=== PATIENT | female | born 1985 ===

== ENCOUNTER 2021-03-20 11:51 | Outpatient (CLI) | payer OTHER ==
[2021-03-20 20:56] LABS: SARS-CoV-2 PCR by NAA Not Detected (NotDetected)
== END 2021-03-20 11:52 | disposition home or self-care (01) ==
LOC: CSHLAB 11:51
PROVIDERS: ATTEND Family Medicine
DX: Z01.812 Encounter for preprocedural laboratory examination (principal); Z20.822 Contact with and (suspected) exposure to COVID-19
CPT/HCPCS: 87635; U0003; U0005

== ENCOUNTER 2021-03-24 18:09 | Inpatient (IN) | payer OTHER ==
[~2021-03-24 18:09] MED LIST: Bupivacaine 0.25% HCL 30 ML VIAL ONE
[2021-03-24] MEDS ORDERED: Carboprost 250 MCG/ML AMP IM PRN (19:39)
[2021-03-24] MEDS ORDERED: hydrALAZINE 20 MG/ML VIAL SLOW IVP PRN (19:39)
[2021-03-24] MEDS ORDERED: Butorphanol Tartrate 1 MG/ML VIAL SLOW IVP PRN (19:39)
[2021-03-24] MEDS ORDERED: Misoprostol 200 MCG TAB PR PRN (19:39)
[2021-03-24] MEDS ORDERED: Ondansetron PF 4 MG/2 ML Vial IVP PRN (19:39)
[2021-03-24] MEDS ORDERED: Lidocaine 1% (PF) 30 ML VIAL SC PRN (19:39)
[2021-03-24] MEDS ORDERED: Promethazine HCl 25 MG/ML VIAL IM PRN (19:39)
[2021-03-24] MEDS ORDERED: Acetaminophen 500 MG TAB PO PRN (19:39)
[2021-03-24] MEDS ORDERED: Methylergonovine 0.2 MG/ML VIAL IM PRN (19:39)
[2021-03-24] MEDS ORDERED: Ibuprofen 800 MG TAB PO PRN (19:39)
[2021-03-24] MEDS ORDERED: NS w/ Oxytocin 30 units 500 ML IV SCH (19:45)
[2021-03-24] MEDS ORDERED: NS w/ Oxytocin 30 units 500 ML IVPB SCH (19:45)
[2021-03-24 20:19] VITALS: BMI 35.2
[2021-03-24 20:23] LABS: Hemoglobin 12.3 g/dL (12.0-15.5); Mean Corpuscular HGB CONC 33.4 g/dL (32.0-36.0); Mean Corpuscular Hemoglobin 28.4 pg (27.0-33.0); Mean Platelet Volume 9.8 fl (7.4-10.4); Platelet Count 214 10x3/uL (150-450); RBC Distribution Width 12.8 % (11.5-14.5); Red Blood Cell (RBC) Count 4.33 10x6/uL (3.90-5.03); White Blood Cell (WBC) Count 11.5 10x3/uL (3.5-10.5)
[2021-03-24] MEDS ORDERED: Misoprostol 100 MCG TAB ONE (20:25)
[2021-03-24] MEDS: Misoprostol 100 MCG TAB VAG SCH (20:28)
[2021-03-24 20:53] LABS: Hep B Surf Ag Non-Reactive S/CO (NonReactive)
[2021-03-24 20:55] LABS: Syphilis Antibody Nonreactive (Nonreactive); Syphilis Antibody Index 0.05 S/CO (<1.00 Non-Reactive)
[2021-03-24 21:54] LABS: HBSAg Index 0.14 S/CO (0-0.99)
[2021-03-25] MEDS ORDERED: Fentanyl 4 mcg/Bup 0.1% Cadd 100 ML ONE ×2 (00:53→08:54)
[2021-03-25] MEDS: Fentanyl 4 mcg/Bupivacaine 0.1% Cassette 100 ML EPIDURAL SCH ×2 (01:52→08:57)
[2021-03-25] MEDS ORDERED: diphenhydrAMINE 50 MG/ML VIAL IVP PRN (01:59)
[2021-03-25] MEDS ORDERED: ePHEDrine 50 MG/ML VIAL SLOW IVP PRN (01:59)
[2021-03-25] MEDS ORDERED: Ondansetron PF 4 MG/2 ML Vial IVP PRN (01:59)
[2021-03-25] MEDS ORDERED: Acetaminophen 325 MG TAB PO PRN (01:59)
[2021-03-25] MEDS ORDERED: Lactated Ringer's 500 ML IV PRN (01:59)
[2021-03-25] MEDS ORDERED: Eucerin (Mineral Oil/Petrolatum,White) 30 gm Jar TOP PRN (01:59)
[2021-03-25] MEDS ORDERED: Promethazine HCl 25 MG/ML VIAL IM PRN (01:59)
[2021-03-25] MEDS ORDERED: Naloxone HCl 0.4 mg/ml Vial IVP PRN ×2 (01:59)
[2021-03-25] MEDS ORDERED: Communication Order-Pharmacy FS SCH (02:00)
[2021-03-25] MEDS: Misoprostol 100 MCG TAB VAG SCH ×2 (12:10→12:11)
[2021-03-25] MEDS: Lactated Ringer's 1,000 ML IV SCH (12:10)
[2021-03-25] MEDS ORDERED: Milk Of Magnesia 30 ML UDCUP PO PRN (13:22)
[2021-03-25] MEDS ORDERED: Adacel (T-DAP) 0.5 ML SYRINGE IM ONE (13:22)
[2021-03-25] MEDS ORDERED: Lanolin Ointment 7 GM TUBE TOP PRN (13:22)
[2021-03-25] MEDS ORDERED: Preparation H Ointment 28 GM TUBE PR PRN (13:22)
[2021-03-25] MEDS ORDERED: Bisacodyl 10 MG SUPP PR PRN (13:22)
[2021-03-25] MEDS ORDERED: Benzocaine-Menthol 82.5 ML CAN TOP PRN (13:22)
[2021-03-25] MEDS ORDERED: hydrALAZINE 20 MG/ML VIAL SLOW IVP PRN (13:22)
[2021-03-25] MEDS: Ibuprofen 800 MG TAB PO SCH ×2 (14:41→21:46)
[2021-03-25] MEDS ORDERED: Ferrous Sulfate 325 MG TAB PO SCH (17:00)
[2021-03-25] MEDS: Docusate Calcium (SURFAK) 240 MG CAP PO SCH (21:45)
[2021-03-26] MEDS ORDERED: Acetaminophen 500 MG TAB PO PRN (06:30)
[2021-03-26] MEDS: Ibuprofen 800 MG TAB PO SCH (06:42)
[2021-03-26 08:15] VITALS: BP 122/77; TEMP 97.9
[2021-03-26] MEDS ORDERED: Polyethylene Glycol 3350 17 GM Packet PO SCH (09:00)
[2021-03-26] MEDS ORDERED: Prenatal Vitamin 1 TAB PO SCH (09:00)
[2021-03-26] MEDS: Docusate Calcium (SURFAK) 240 MG CAP PO SCH (09:04)
== END 2021-03-26 13:45 | disposition home or self-care (01) | DRG 806 ==
LOC: CSHLD 18:09 → CSHPP 03-25 13:05
PROVIDERS: ADMIT Family Medicine; ATTEND Family Medicine
PROC: 10E0XZZ Delivery of Products of Conception, External Approach (ICD-10-PCS; principal; 2021-03-25)
PROC: 0KQM0ZZ Repair Perineum Muscle, Open Approach (ICD-10-PCS; 2021-03-25)
PROC: 10907ZC Drainage of Amniotic Fluid, Therapeutic from Products of Conception, Via Natural or Artificial Opening (ICD-10-PCS; 2021-03-25)
PROC: 3E0P7VZ Introduction of Hormone into Female Reproductive, Via Natural or Artificial Opening (ICD-10-PCS; 2021-03-25)
PROC: 3E033VJ Introduction of Other Hormone into Peripheral Vein, Percutaneous Approach (ICD-10-PCS; 2021-03-25)
DX: O69.81X0 Labor and delivery complicated by cord around neck, without compression, not applicable or unspecified (principal); O99.354 Diseases of the nervous system complicating childbirth; Z37.0 Single live birth; O70.1 Second degree perineal laceration during delivery; O76 Abnormality in fetal heart rate and rhythm complicating labor and delivery; G40.909 Epilepsy, unspecified, not intractable, without status epilepticus; Z3A.40 40 weeks gestation of pregnancy
CPT/HCPCS: 51702; 85027; 86780; 86850; 86900; 86901; 87340; J2405; J2590; S0020